=== PATIENT | male | born 1960 | race Caucasian/White ===

== ENCOUNTER → 2017-09-20 | Day surgery (SDC) | payer OTHER ==
[~2017-09-20] MED LIST: ACIPHEX20 MG PO; AMLODIPINE BESY10 MG PO; DEXILANT60 MG PO; FENTANYL CITRATE/PF 100MCG/2 ML INJ ONE; LIDOCAINE HCL 2% LOCAL INJ 5 ML SDV VIAL INJ ONE; MIDAZOLAM HCL 2 MG/2 ML VIAL ONE; PROPOFOL IV EMULSION 10 MG/ML 50 ML VIAL ONE; TYLENOL PM EX-1 EACH PO
--- OUTSIDE RECORDS SUMMARY | 2017-09-20 07:39 | XMS REPORT ---
[facility] Address Unknown Phone Unavailable Care Team Providers Care Printer Assistant Name Role Phone NOHEMI REBOLLAR Unavailable Unavailable Problems This patient has no known problems. Allergies, Adverse Reactions, Alerts This patient has no known allergies or adverse reactions. Medications This patient has no known medications. Results Test Description Test Time Test Comments Text Results Atomic Results Result Comments FINGER LEFT [place] [id number] Patient Name: KRISTINA WAN MR #: [id number] : 1960 Age/Sex: 57/M Req #: [id number] Adm Physician: Ordered by: NOHEMI REBOLLAR MD Report #: [id number] Location: ER Room/Bed: Procedure: 1028- 0010 DX/FINGER LEFT Exam Date: Exam Time: REPORT STATUS: Signed EXAM: FINGER LEFT, AP, lateral and oblique DATE: 5:59 AM Time stamp on exam: 0609 hours INDICATION: Crushed finger COMPARISON: None FINDINGS: BONES: Acute, comminuted, minimally displaced fracture through the fifth digit distal phalanx. No lytic or blastic lesions. JOINTS: No malalignment. SOFT TISSUES: Soft tissue swelling fifth digit. No radiopaque foreign body. IMPRESSION: Acute, comminuted, minimally displaced fracture through the fifth digit distal phalanx. Signed by: Dr. Jeane Bates M.D. on 04/07/2017 6:49 AM Dictated By: JEANE BATES MD 8 Transcribed By: JAYRO on 04/07/17648 COPY TO: NOHEMI REBOLLAR MD
== END | disposition home or self-care (01) ==
LOC: OR 07:37
PROVIDERS: ATTEND Internal Medicine Gastroenterology
DX: K29.50 Unspecified chronic gastritis without bleeding (principal); K26.7 Chronic duodenal ulcer without hemorrhage or perforation; K44.9 Diaphragmatic hernia without obstruction or gangrene; K21.9 Gastro-esophageal reflux disease without esophagitis; E66.3 Overweight; R03.0 Elevated blood-pressure reading, without diagnosis of hypertension; F17.210 Nicotine dependence, cigarettes, uncomplicated; Z88.5 Allergy status to narcotic agent; Z01.810 Encounter for preprocedural cardiovascular examination; Z68.26 Body mass index [BMI] 26.0-26.9, adult
CPT/HCPCS: 43239; 93005; J2001; J2250